=== PATIENT | female | born 1990 | race Caucasian/White ===

== ENCOUNTER 2023-07-02 13:09 | Emergency (ER) | payer MEDICAID, SELFPAY ==
[2023-07-02 13:10] VITALS: BP 152/107; PULSE 99; RESP 16; TEMP 36.6; O2SAT 99
--- NOTE | 2023-07-02 13:20 | RAD_ITS ---
STUDY: X-RAY - LEFT FOOT CLINICAL: Female, 33 years old. foot pain TECHNIQUE: 3 view(s) of the foot. COMPARISON: None. FINDINGS: Normal talus, calcaneus, and tarsal bones. Normal visualized subtalar, talonavicular, calcaneocuboid, tarsal and tarsometatarsal articulations. Normal metatarsi. Normal metatarsophalangeal joint of the great toe. Normal tibial and fibular sesamoid bones. Normal interphalangeal joint of the great toe. Normal phalanges of the great toe. Normal second through fifth metatarsophalangeal joints. Normal interphalangeal joints and phalanges of the lesser toes. The soft tissue structures are unremarkable. RAD/Foot min 3 Views IMPRESSION: Normal x-ray examination of the foot. Electronically Signed: Michael Mccabe MD at 14:27 EDT ,
--- NOTE | 2023-07-02 13:47 | ED.VIS.LOWEX ---
HPI <PRIETO Gonzalez - Last Filed: 07/02/23 14:43> History of Present Illness Chief Complaint: Lower Extremity Injury Narrative Narrative: Patient presenting today with pain to the dorsum of her left foot after an injury that occurred this afternoon. She reports that she was at an auction and was wearing steel toed boots, she tripped over a cardboard box and reports that her shoe bent when she fell and injured her foot. She has had a hard time ambulating due to pain. She did not hit her head and denies any other injury. PFSH <PRIETO Gonzalez - Last Filed: 07/02/23 14:43> PFSH Allergy/AdvReac Type Severity Reaction Status Date / Time No Known Allergies Allergy Verified 07/02/23 13:11 Social History Smoking Status: Never smoker ROS <PRIETO Gonzalez - Last Filed: 07/02/23 14:43> ROS ED Constitutional Constitutional ED: Denies chills or fever(s) Cardiovascular Cardiovascular: Denies chest pain Respiratory/Chest Respiratory/Chest: Denies dyspnea Musculoskeletal Musculoskeletal: Reports arthralgias Integumentary Denies Abrasions Neurologic Neurologic: Denies paresthesias EXAM <PRIETO Gonzalez Last Filed: 07/02/23 14:43> Physical Exam Const Vital Signs: 07/02/23 13:10 07/02/23 14:32 Temperature 98 F 98.6 F Temperature Source Temporal Pulse Rate 99 84 Respiratory Rate 16 18 Blood Pressure 152/107 H 119/70 Blood Pressure Mean 122 86 Pulse Ox 99 99 Oxygen Delivery Method Room Air Positive well nourished, well developed and no apparent distress General Appearance ED: well developed HEENT Reports normocephalic and head/scalp atraumatic Mouth ED: Yes moist mucous membranes normal Eyes PERRL and EOMs intact bilaterally Neck full ROM and supple Chest Wall inspection of chest normal Resp normal respiratory effort and clear to auscultation bilaterally Cardio regular rate and regular rhythm GI soft to palpation, non-tender, non-distended and no masses Back/Spine normal ROM and normal to inspection Extremity normal to inspection and full ROM Extremity Narrative: Pain to palpation to the dorsal and medial aspect of the L foot. Left DP pulse 2+, good capillary refill, sensation intact Neuro oriented x3, CN's II-XII intact bilaterally, moves all extremities, no focal motor deficits and no sensory deficits noted Sensorium / Orientation: awake and alert Psych mental status grossly normal and thought process normal Skin no rashes or lesions noted and no wounds <Jimmy Serrano MD - Last Filed: 07/02/23 15:06> Physical Exam Const Vital Signs: 07/02/23 13:10 07/02/23 14:32 Temperature 98 F 98.6 F Temperature Source Temporal Pulse Rate 99 84 Respiratory Rate 16 18 Blood Pressure 152/107 H 119/70 Blood Pressure Mean 122 86 Pulse Ox 99 99 Oxygen Delivery Method Room Air [facility] <PRIETO Gonzalez - Last Filed: 07/02/23 14:43> [facility] Narrative Medical decision making narrative: Patient presenting today with pain to the dorsal and medial aspect of her left foot, she reports that she is having a hard time wiggling her left fourth and fifth toes. X-ray will be obtained to rule out fracture, she was given Tylenol for pain. X-ray interpreted by the attending ED physician as no acute process. She was given a postop shoe, RICE instructions, and a referral for follow-up with podiatry. She can alternate Tylenol and ibuprofen as needed for pain. She will be discharged home in stable condition. Radiography X-Ray: Read by ED Physician Diagnostic Testing: Clinical Impression(s) from Imaging Studies Foot X-Ray 07/02/23 13:20 IMPRESSION: Normal x-ray examination of the foot. Electronically Signed: Michael Mccabe MD at 14:27 EDT Reading Location ID and State: [address] [place] [address] , Service support , <Jimmy Serrano MD - Last Filed: 07/02/23 15:06> [facility] Narrative Medical decision making narrative: Patient presenting today with pain to the dorsal and medial aspect of her left foot, she reports that she is having a hard time wiggling her left fourth and fifth toes. X-ray will be obtained to rule out fracture, she was given Tylenol for pain. X-ray interpreted by the attending ED physician as no acute process. She was given a postop shoe, RICE instructions, and a referral for follow-up with podiatry. She can alternate Tylenol and ibuprofen as needed for pain. She will be discharged home in stable condition. Dr. Serrano: I have personally performed a face to face assessment of the patient and have reviewed the MILAN Note. I performed a substantive portion of the visit including all aspects of the following. My burton findings include: History is injury to left foot while wearing steel toed boots. Midfoot hyperflexion injury. Exam is GCS 15. ABCs intact. Mild tenderness to palpation throughout arch, with tenderness to palpation at base of fourth and fifth toes/distal metatarsals. Palpable dorsalis pedis pulse. Medical Decision Making: In the differential would be foot sprain versus strain versus fracture. X-rays of the left foot interpreted by myself independently show no evidence of acute fracture. I reviewed the radiology report which confirms my independent interpretation. Patient will take [id number] analgesics, continue ice and elevation, and wear the postop shoe she was given. Follow-up with podiatry. Disposition is discharged home in stable condition. Other additions or changes: [None] Radiography Diagnostic Testing: Clinical Impression(s) from Imaging Studies Foot X-Ray 07/02/23 13:20 IMPRESSION: Normal x-ray examination of the foot. Electronically Signed: Michael Mccabe MD at 14:27 EDT Reading Location ID and State: [facility] / [place] , Service support , Discharge Plan Triage Chief Complaint: Lower Extremity Injury ED Midlevel Provider: Nita Dos Santos ED Provider: Jimmy Serrano Dx/Rx/DC Orders Clinical Impression: Contusion of foot Instructions: ED Foot Contusion Primary Care Provider: Beatrice Rosas Referrals: Phillip Elkins DPM [Med Staff - Active Staff] - 1 Week if not improving Beatrice Rosas [Primary Care Provider] - Activity Restrictions/Additional Instructions: You can alternate Tylenol and ibuprofen as needed for your pain. Keep your foot elevated to help with swelling, ice several times a day for 15 to 20 minutes at a time. Follow-up with podiatry. Disposition Disposition: Home, Self Care Discharge Date/Time: 07/02/23 14:35
[2023-07-02] MEDS: Acetaminophen 325 MG Tablet 650 MG PO (14:12)
[2023-07-02 14:32] VITALS: BP 119/70; PULSE 84; RESP 18; TEMP 37; O2SAT 99
== END 2023-07-02 14:35 | disposition home or self-care (01) ==
PROVIDERS: Emergency Provider Emergency Medicine; PCP Family Medicine; Visit Provider Emergency Medicine
DX: S90.32XA Contusion of left foot, initial encounter (principal); W19.XXXA Unspecified fall, initial encounter; Y92.89 Other specified places as the place of occurrence of the external cause
CPT/HCPCS: 73630; 99283